=== PATIENT | female | born 1995 | race Caucasian/White ===

== ENCOUNTER 2017-04-15 06:25 | Emergency (ER) | payer OTHER ==
[2017-04-15 06:32] VITALS: BP 121/72; PULSE 89; RESP 18; TEMP 98.4; O2SAT 95
[2017-04-15] MEDS ORDERED: PROPARACAINE 0.5% 15 ML OPHT DROP ONE (06:45)
[2017-04-15] MEDS ORDERED: PROPARACAINE 0.5% 15 ML OPHT DROP RTEYE ONE (06:49)
[2017-04-15] MEDS ORDERED: FLUORESCEIN SODIUM 1 MG STRIP OP ONE (06:52)
--- NOTE | 2017-04-15 07:09 | EDPHY ---
H & P Time Seen by Provider: 04/15/17 06:49 HPI/ROS: CHIEF COMPLAINT: Right eye pain HISTORY OF PRESENT ILLNESS: The patient is a 21-year-old female presents to the emergency department right eye pain. She wears extended wear contact lenses. She states she awoke with right eye pain. Her contact is removed. She has had no recent trauma. No new change of eye solution or cleaning products. She did recently start Lamictal. Patient's pain is worse with light. She has no visual change. No nausea or vomiting. No fever or chills. REVIEW OF SYSTEMS: My complete review of systems is negative except as mentioned in the HPI. Past Medical/Surgical History: Bipolar disorder Past surgical history: Negative Social history: She does not smoke Smoking Status: Never smoked Physical Exam: Vitals noted GENERAL: Well-appearing, in no acute distress, alert. Visual acuity: Patient normally wears contacts for the exam. She is not wearing any eye ate for the exam. Eyelids: Normal inspection, everted for exam. Conjunctiva and sclera: Normal inspection. No foreign material. No subconjunctival hemorrhage. No exudate. Not injected. Corneas: Multiple stromal infiltrates. Examined with fluorescein dye: No uptake, abrasion, or ulcer. EOMs: Intact. Pupils: PERRL, normal accommodation. Anterior chambers: Normal inspection. No hyphema. No cells or flare. Posterior segments: Normal funduscopic exam Constitutional: Initial Vital Signs Temperature (C) 36.9 C 04/15/17 06:27 Heart Rate 89 04/15/17 06:27 Respiratory Rate 18 04/15/17 06:27 Blood Pressure 121/72 H 04/15/17 06:27 O2 Sat (%) 95 04/15/17 06:27 O2 Delivery Mode Room Air Allergies/Adverse Reactions: No Allergies [NKA] Allergy (Verified 04/15/17 06:32) Home Medications: Medication Instructions Recorded Lamotrigine 04/15/17 Medical Decision Making ED Course/Re-evaluation: In the emergency department I discussed possible etiologies with the patient. I answered all her questions. She was told not to wear her contacts until she follows up with Ophthalmology. She was given contact information. She will be started on ciprofloxacin drops from the emergency department. She will use 2 drops q.2 hours for the next 3 days, while awake. She will return with worsening symptoms. She was given warnings prior to leaving. Differential Diagnosis: My differential includes but is not limited to keratitis, bacterial keratitis, ulcer, abrasion, hypopyon, rupture, glaucoma - Data Points Medications Given: Discontinued Medications Proparacaine HCl (Alcaine 0.5%) 1 drops RTEYE ONCE ONE Stop: 04/15/17 06:50 Last Admin: 04/15/17 06:50 Dose: 1 drop Departure - Departure Disposition: Home, Routine, Self-Care Clinical Impression: Pain, eye, right, Keratitis Condition: Good Instructions: Keratitis (ED), Eye Pain (ED) Additional Instructions: You need close follow-up with the derrick boat runner. He was given contact information. Call her office 1st thing Sunday morning. You are to take ciprofloxacin eyedrops. Place 2 drops in the right eye every 2 hours while awake for the next 3 days. Referrals: Jaky Mendez MD [Medical Doctor] - 2-3 days without fail
[2017-04-15] MEDS ORDERED: CIPROFLOXACIN 0.3% DROPS PREPACK OPHT.BTL TAKEHOME ONE (07:12)
== END 2017-04-15 07:26 | disposition home or self-care (01) ==
DX: H16.9 Unspecified keratitis (principal)